=== PATIENT | female | born 1990 | race Two or more races ===

== ENCOUNTER 2019-03-05 03:09 | Emergency (ER) | payer OTHER, MEDICAID ==
[~2019-03-05] VITALS: Ht 167.6 cm; Wt 56.7 kg
[2019-03-05] MEDS ORDERED: IBUPROFEN 400 MG TABLET ONE (03:29)
[2019-03-05] MEDS ORDERED: IBUPROFEN 400 MG TABLET PO ONE (03:30)
--- NOTE | 2019-03-05 03:31 | NUR ---
BIB SELF FROM HOME WITH FRIEND AT BEDSIDE. AAOX4. CRYING. NO RESP DISTRESS NOTED. BREATHING EVEN AND UNLABORED. C/O L FOREARM PAIN S/P BREAKING HER FALL FOR A DANCE MOVE. PT REPORTS THAT SHE WAS INTENTIONALLY BREAK HER FALL A DANCE MOVE BUT LANDED WRONG. INCIDENT HAPPENED AT 5PM. PAIN GETTING WORST. DESCRAIDE PAIN SHARP, THROBBING AND SHOOTING PAIN ON LFA. NOTED LIMITED ROM ON ELBOW. NO SENSATION LOSS AND ABLE TO MOVE ALL FINGERS. TO ER BED 10. MD AT BEDSIDE. XRAY AT BEDSIDE. ORDERS RECEIVED
[2019-03-05] MEDS ORDERED: HYDROCODONE/APAP 5/325MG 1 EACH TABLET PO ONE (04:30)
[2019-03-05] MEDS ORDERED: HYDROCODONE/APAP 5/325MG 1 EACH TABLET ONE (04:31)
--- NOTE | 2019-03-05 04:38 | NUR ---
Patient discharged to home in stable condition. Written and verbal after care instructions given. Patient verbalizes understanding of instruction. Pt ambulatory with a steady gait
[2019-03-05 04:39] VITALS: BP 114/72
== END 2019-03-05 04:40 | disposition home or self-care (01) ==
LOC: ER 03:13
DX: S42.402A Unspecified fracture of lower end of left humerus, initial encounter for closed fracture (principal); Z88.0 Allergy status to penicillin; Z88.2 Allergy status to sulfonamides; Z88.1 Allergy status to other antibiotic agents; W18.39XA Other fall on same level, initial encounter; Y93.41 Activity, dancing; Y92.89 Other specified places as the place of occurrence of the external cause; Y99.0 Civilian activity done for income or pay
CPT/HCPCS: 73080-TC; 73090-TC